=== PATIENT | female | born 1985 | race Hispanic/Latino ===

== ENCOUNTER 2018-06-09 16:17 | Emergency (ER) | payer SELFPAY ==
[2018-06-09] MEDS ORDERED: NA CHLORIDE 0.9% 1,000 ML ONE (17:09)
[2018-06-09] MEDS ORDERED: ONDANSETRON 4 MG/2 ML VIAL ONE (17:09)
[2018-06-09] MEDS ORDERED: MORPHINE 4 MG/ML SYR ONE (17:09)
[2018-06-09] MEDS ORDERED: METRONIDAZOLE 500mg IVPB 500 MG/100 ML BAG IV ONE (17:10)
[2018-06-09] MEDS ORDERED: CEFTRIAXONE/SWI 1gm 1 GM/10 ML SYR ONE (17:10)
[2018-06-09 17:40] LABS: Urine Blood NEGATIVE (NEG); Urine Glucose NEGATIVE (NEG); Urine Protein NEGATIVE (NEG); Urine Specific Gravity 1.015 (1.005-1.030); Urine pH 5.5 (5.0-7.0)
[2018-06-09 17:46] LABS: Absolute Lymphocytes (CBC) 1.7 K/uL (0.7-4.9); Absolute Monocytes 0.7 K/uL (0.1-1.3); Absolute Neutrophil 5.9 K/uL (1.8-8.0); Basophils % 0.4 % (0-1.3); Eosinophils % 1.6 % (0-4.4); Lymphocytes % 19.6 % (15.3-44.8); MPV 9.9 fL (7.6-11.3); Monocytes % 7.9 % (3.3-12.3); RBC Red Blood Cell Count 4.74 M/uL (3.86-4.86)
[2018-06-09 18:01] LABS: ALT/SGPT 19 U/L (12-78); AST/SGOT 19 U/L (15-37); Albumin 3.7 g/dL (3.4-5.0); Alkaline Phosphatase 75 U/L (45-117); BUN Blood Urea Nitrogen 11 mg/dL (7-18); Bicarbonate 25 mmol/L (21-32); Bilirubin Direct < 0.1 mg/dL (0-0.2); Bilirubin Total 0.3 mg/dL (0.2-1.0); Glucose Level 91 mg/dL (74-106); Lipase 102 U/L (73-393); Potassium 3.5 mmol/L (3.5-5.1); Protein, Total 8.2 g/dL (6.4-8.2); Sodium Level 141 mmol/L (136-145)
--- NOTE | 2018-06-09 18:07 | ER ---
Nurse's Notes [facility] Name: Muriel Shultz Age: 32 yrs Sex: Female : 1985 Arrival Date: 06/09/2018 Time: 16:20 Bed 14 Private MD: Diagnosis: Cystitis, unspecified without hematuria Presentation: 06/09 16:32 Presenting complaint: Patient states: lower abdominal pain that began today. Pt states aa5 "I had diarrhea yesterday but it went away", denies vomiting. 16:32 Transition of care: patient was not received from another setting of care. Onset of aa5 symptoms was June 09, 2018. Risk Assessment: Do you want to hurt yourself or someone else? Patient reports no desire to harm self or others. Initial Sepsis Screen: Does the patient meet any 2 criteria? No. Patient's initial sepsis screen is negative. Does the patient have a suspected source of infection? No. Patient's initial sepsis screen is negative. Care prior to arrival: None. 16:32 Method Of Arrival: Ambulatory aa5 16:32 Acuity: HERNANDEZ 3 aa5 Triage Assessment: 16:35 General: Appears distressed, uncomfortable, obese, Behavior is cooperative, appropriate bp for age, anxious. 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 - Social history:: Patient/guardian denies using alcohol, street drugs, The patient lives with family, Smoking status: Patient/guardian denies using tobacco. - Ebola Screening: : No symptoms or risks identified at this time. - Family history:: not pertinent. Screenin:26 Abuse screen: Denies threats or abuse. Denies injuries from another. Nutritional bp screening: No deficits noted. Tuberculosis screening: No symptoms or risk factors identified. Fall Risk None identified. Assessment: 16:35 General: Appears distressed, uncomfortable, obese, Behavior is cooperative, appropriate bp for age, anxious. Pain: Complains of pain in abdomen. Neuro: No deficits noted. Cardiovascular: No deficits noted. Respiratory: Airway is patent Respiratory effort is even, unlabored. GI: Bowel sounds present X 4 quads. Abd is soft X 4 quads Abdomen is tender to palpation X 4 quads. : No signs and/or symptoms were reported regarding the genitourinary system. EENT: No deficits noted. Derm: No deficits noted. Musculoskeletal: Circulation, motion, and sensation intact. Range of motion: intact in all extremities. 18:00 Reassessment: ALL CURRENT ORDERS COMPLETED, IVF INFUSING, RESULTS PENDING. bp 18:21 Reassessment: PT D/C HOME AMBULATORY WITH FAMILY, DX WITH ACUTE CYSTITIS. bp Vital Signs: 16:35 BP 111 / 68; Pulse 103; Resp 18 S; Temp 98.6(O); Pulse Ox 98% on R/A; aa5 18:02 BP 96 / 81; Pulse 83; Resp 18; Temp 98.1(O); Pulse Ox 98% on R/A; 5 ED Course: 16:20 Patient arrived in ED. rg4 16:32 Arm band placed on Patient placed in an exam room, on a stretcher. aa5 16:34 Maureen Araiza MD is Attending Physician. ma2 16:35 Patient has correct armband on for positive identification. Placed in gown. Bed in low bp position. Call light in reach. Side rails up X2. Adult w/ patient. 16:41 Triage completed. aa5 16:47 Mao Scherer, RN is Primary Nurse. bp 17:00 Inserted saline lock: 20 gauge in right antecubital area, using aseptic technique. bp Blood collected. 18:21 No provider procedures requiring assistance completed. IV discontinued, intact, bp bleeding controlled, No redness/swelling at site. Pressure dressing applied. Administered Medications: 17:00 Drug: NS 0.9% 1000 ml Route: IV; Rate: 1 bolus; Site: right antecubital; bp 18:23 Follow up: IV Status: Completed infusion; IV Intake: 1000ml bp 17:00 Drug: Zofran 4 mg Route: IVP; Site: right antecubital; bp 18:06 Follow up: Response: Nausea is decreased bp 17:00 Drug: morphine 4 mg Route: IVP; Site: right antecubital; bp 18:06 Follow up: Response: Pain is decreased bp 17:00 Drug: Rocephin 1 grams Route: IV; Rate: calculated rate; Site: right antecubital; bp 18:06 Follow up: IV Status: Completed infusion; IV Intake: 20ml bp 17:00 Drug: Flagyl 500 mg Volume: 100 ml; Route: IVPB; Rate: 200 ml/hr; Infused Over: 30 bp mins; Site: right antecubital; 18:06 Follow up: IV Status: Completed infusion; IV Intake: 100ml bp Intake: 18:06 IV: 20ml; Total: 20ml. bp 18:06 IV: 100ml; Total: 120ml. bp 18:23 IV: 1000ml; Total: 1120ml. bp Outcome: 18:06 Discharge ordered by MD. huggins 18:22 Discharged to home ambulatory. bp 18:22 Condition: stable 18:22 Discharge instructions given to patient, Instructed on discharge instructions, follow up and referral plans. medication usage, Demonstrated understanding of instructions, follow-up care, medications, Prescriptions given X 2. 18:22 Patient left the ED. bp Signatures: Marjan Guzman, ABIH RN fran5 Christal Baldwin Maria Mao Epps RN RN bp Maureen Araiza MD MD ma2
--- NOTE | 2018-06-09 18:07 | EDPHYS ---
Physician Documentation [facility] Name: Muriel Shultz Age: 32 yrs Sex: Female : 1985 Arrival Date: 06/09/2018 Time: 16:20 Bed 14 Private MD: ED Physician Maureen Araiza HPI: 06/09 16:41 This 32 yrs old Female presents to ER via Ambulatory with complaints of ma2 Abdominal Pain. 16:41 The patient presents with abdominal pain right lower quadrant. Onset: The ma2 symptoms/episode began/occurred gradually, 1 hour(s) ago. Associated signs and symptoms: Pertinent negatives: nausea and vomiting, chest pain, dysuria, vaginal discharge, vomiting. Associated signs and symptoms: Pertinent positives: diarrhea. Severity of pain: At its worst the pain was moderate in the emergency department the pain is unchanged. The patient has not experienced similar symptoms in the past. RADIOLOGY ASST: 16:35 LMP 05/31/2018 aa5 Historical: - Allergies: 16:41 No Known Allergies; aa5 - PMHx: 16:41 Hypothyroidism; aa5 - PSHx: 16:41 Tubal ligation; aa5 - Immunization history:: Adult Immunizations up to date. - Social history:: Patient/guardian denies using alcohol, street drugs, The patient lives with family, Smoking status: Patient/guardian denies using tobacco. - Ebola Screening: : No symptoms or risks identified at this time. - Family history:: not pertinent. ROS: 16:41 Constitutional: Negative for fever, chills, and weight loss. ma2 16:41 Abdomen/GI: Positive for abdominal pain, diarrhea, Negative for bowel incontinence. 16:41 All other systems are negative. Exam: 16:41 Constitutional: This is a well developed, well nourished patient who is awake, alert, ma2 and in no acute distress. Chest/axilla: Normal chest wall appearance and motion. Nontender with no deformity. No lesions are appreciated. Cardiovascular: Regular rate and rhythm with a normal S1 and S2. No gallops, murmurs, or rubs. Normal PMI, no JVD. No pulse deficits. Respiratory: Lungs have equal breath sounds bilaterally, clear to auscultation and percussion. No rales, rhonchi or wheezes noted. No increased work of breathing, no retractions or nasal flaring. Abdomen/GI: Soft, non-tender, with normal bowel sounds. No distension or tympany. No guarding or rebound. No evidence of tenderness throughout. MS/ Extremity: Pulses equal, no cyanosis. Neurovascular intact. Full, normal range of motion. Neuro: Awake and alert, GCS 15, oriented to person, place, time, and situation. Cranial nerves II-XII grossly intact. Motor strength 5/5 in all extremities. Sensory grossly intact. Cerebellar exam normal. Normal gait. Vital Signs: 16:35 BP 111 / 68; Pulse 103; Resp 18 S; Temp 98.6(O); Pulse Ox 98% on R/A; aa5 18:02 BP 96 / 81; Pulse 83; Resp 18; Temp 98.1(O); Pulse Ox 98% on R/A; mh5 MDM: 16:34 Patient medically screened. [facility] 16:41 Differential diagnosis: appendicitis, gastritis, gastroesophageal reflux disease, ma2 urinary tract infection. 18:06 Data reviewed: vital signs, nurses notes. Counseling: I had a detailed discussion with [facility] the patient and/or guardian regarding: the historical points, exam findings, and any diagnostic results supporting the discharge/admit diagnosis, the presence of at least one elevated blood pressure reading (>120/80) during this emergency department visit, the need for outpatient follow up. Response to treatment: the patient's symptoms have markedly improved after treatment. 06/09 16:40 Order name: Basic Metabolic Panel; Complete Time: 18:05 [facility] 06/09 16:40 Order name: CBC with Diff; Complete Time: 17:55 [facility] 06/09 16:40 Order name: Creatinine for Radiology; Complete Time: 18:05 [facility] 06/09 16:40 Order name: Hepatic Function; Complete Time: 18:05 [facility] 06/09 16:40 Order name: Lipase; Complete Time: 18:05 [facility] 06/09 17:13 Order name: Urine Dipstick--Ancillary (enter results); Complete Time: 17:55 06/09 16:40 Order name: IV Saline Lock; Complete Time: 17:23 [facility] 06/09 16:40 Order name: Labs collected and sent; Complete Time: 17:23 [facility] 06/09 17:13 Order name: Urine --Ancillary (enter results); Complete Time: 17:55 bd 06/09 16:40 Order name: NPO; Complete Time: 17:04 ma2 06/09 16:40 Order name: Urine Dipstick-Ancillary (obtain specimen); Complete Time: 17:04 ma2 Administered Medications: 17:00 Drug: NS 0.9% 1000 ml Route: IV; Rate: 1 bolus; Site: right antecubital; bp 18:23 Follow up: IV Status: Completed infusion; IV Intake: 1000ml bp 17:00 Drug: Zofran 4 mg Route: IVP; Site: right antecubital; bp 18:06 Follow up: Response: Nausea is decreased bp 17:00 Drug: morphine 4 mg Route: IVP; Site: right antecubital; bp 18:06 Follow up: Response: Pain is decreased bp 17:00 Drug: Rocephin 1 grams Route: IV; Rate: calculated rate; Site: right antecubital; bp 18:06 Follow up: IV Status: Completed infusion; IV Intake: 20ml bp 17:00 Drug: Flagyl 500 mg Volume: 100 ml; Route: IVPB; Rate: 200 ml/hr; Infused Over: 30 bp mins; Site: right antecubital; 18:06 Follow up: IV Status: Completed infusion; IV Intake: 100ml bp Disposition: 06/09/18 18:06 Discharged to Home. Impression: Cystitis, unspecified without hematuria. - Condition is Stable. - Discharge Instructions: Urinary Tract Infection, Adult. - Prescriptions for Tylenol- Codeine #3 300-30 mg Oral Tablet - take 2 tablet by ORAL route every 6 hours As needed; 30 tablet. Bactrim DS 800- 160 mg Oral Tablet - take 1 tablet by ORAL route every 12 hours for 10 days; 20 tablet. - Medication Reconciliation Form, Thank You Letter, Antibiotic Education, Prescription Opioid Use form. - Follow up: Private Physician; When: Tomorrow; Reason: Continuance of care. Signatures: Dispatcher [employer] Marjan Guillen RN RN aa5 Mao Scherer RN RN bp Maureen Araiza MD MD ma2 Corrections: (The following items were deleted from the chart) 18:22 18:06 06/09/2018 18:06 Discharged to Home. Impression: Cystitis, unspecified without bp hematuria. Condition is Stable. Discharge Instructions: Urinary Tract Infection, Adult. Prescriptions for Tylenol-Codeine #3 300-30 mg Oral Tablet - take 2 tablet by ORAL route every 6 hours As needed; 30 tablet, Bactrim DS 800-160 mg Oral Tablet - take 1 tablet by ORAL route every 12 hours for 10 days; 20 tablet. and Forms are Medication Reconciliation Form, Thank You Letter, Antibiotic Education, Prescription Opioid Use. Follow up: Private Physician; When: Tomorrow; Reason: Continuance of care. ma2
== END 2018-06-09 18:22 | disposition home or self-care (01) ==
LOC: ER 16:17
DX: N30.90 Cystitis, unspecified without hematuria (principal)
CPT/HCPCS: 36415; 80048; 80076; 81003; 81025; 83690; 85025; J0696; J2405; J7030

== ENCOUNTER 2018-09-04 01:41 | Emergency (ER) | payer SELFPAY ==
[2018-09-04 02:17] LABS: Absolute Lymphocytes (CBC) 2.7 K/uL (0.7-4.9); Basophils % 0.7 % (0-1.3); Lymphocytes % 21.3 % (15.3-44.8); MPV 10.2 fL (7.6-11.3); RBC Red Blood Cell Count 4.38 M/uL (3.86-4.86)
[2018-09-04] MEDS ORDERED: NA CHLORIDE 0.9% 1,000 ML ONE (02:29)
[2018-09-04] MEDS ORDERED: ONDANSETRON 4 MG/2 ML VIAL ONE (02:29)
[2018-09-04] MEDS ORDERED: MORPHINE 4 MG/ML SYR ONE (02:29)
[2018-09-04 02:39] LABS: ALT/SGPT 30 U/L (12-78); AST/SGOT 41 U/L (15-37); Albumin 3.5 g/dL (3.4-5.0); Alkaline Phosphatase 77 U/L (45-117); BUN Blood Urea Nitrogen 12 mg/dL (7-18); Bicarbonate 22 mmol/L (21-32); Bilirubin Direct 0.1 mg/dL (0-0.2); Bilirubin Total 0.3 mg/dL (0.2-1.0); Glucose Level 116 mg/dL (74-106); Lipase 160 U/L (73-393); Potassium 3.5 mmol/L (3.5-5.1); Sodium Level 139 mmol/L (136-145); Troponin (Emerg Dept Use Only) < 0.02 ng/mL (0.0-0.045)
[2018-09-04 03:55] LABS: Urine Blood NEGATIVE (NEG); Urine Glucose NEGATIVE (NEG); Urine Protein NEGATIVE (NEG); Urine Specific Gravity 1.015 (1.005-1.030)
[2018-09-04 03:56] LABS: Urine Culture Reflex Order REFLEXED
[2018-09-04 03:57] LABS: Urine Bacteria <20 /HPF (<20); Urine RBC NONE SEEN /HPF (NONE SEEN)
--- NOTE | 2018-09-04 04:16 | ER ---
Nurse's Notes [facility] Name: Muriel Shultz Age: 33 yrs Sex: Female : 1985 Arrival Date: 09/04/2018 Time: 01:44 Bed 8 Private MD: Diagnosis: Cholelithiasis;Gastritis, unspecified Presentation: 09/04 02:13 Presenting complaint: Patient states: right chest wall pain, epigastric pain with ak1 nausea. Transition of care: patient was not received from another setting of care. Onset of symptoms was September 03, 2018 at 21:00. Risk Assessment: Do you want to hurt yourself or someone else? Patient reports no desire to harm self or others. Initial Sepsis Screen: Does the patient meet any 2 criteria? No. Patient's initial sepsis screen is negative. Does the patient have a suspected source of infection? No. Patient's initial sepsis screen is negative. Care prior to arrival: None. 02:13 Method Of Arrival: Wheelchair ak1 02:13 Acuity: HERNANDEZ 3 ak1 Triage Assessment: 01:54 General: Appears in no apparent distress. uncomfortable, Behavior is cooperative, ak1 anxious, crying, restless. Pain: Complains of pain in diaphragm, xyphoid area and right breast. EENT: No signs and/or symptoms were reported regarding the EENT system. Neuro: No deficits noted. Cardiovascular: Reports chest pain. Respiratory: Airway is patent Breath sounds are clear bilaterally. GI: Abdomen is round Reports nausea. : No signs and/or symptoms were reported regarding the genitourinary system. Derm: No signs and/or symptoms reported regarding the dermatologic system. Musculoskeletal: No signs and/or symptoms reported regarding the musculoskeletal system. 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 - Social history:: Smoking status: Patient/guardian denies using tobacco. - Ebola Screening: : No symptoms or risks identified at this time. - Family history:: not pertinent. - Hospitalizations: : No recent hospitalization is reported. Screenin:14 Abuse screen: Denies threats or abuse. Denies injuries from another. Nutritional ak1 screening: No deficits noted. Tuberculosis screening: No symptoms or risk factors identified. Fall Risk None identified. Assessment: 02:00 General: see triage assessment. cc3 02:00 Pain: Complains of pain in chest Pain radiates to back Pain began suddenly. cc3 03:20 Reassessment: Patient appears in no apparent distress at this time. Patient and/or cc3 family updated on plan of care and expected duration. Pain level reassessed. Patient is alert, oriented x 3, equal unlabored respirations, skin warm/dry/pink. Patient came back from CT scan department, awaiting result. Patient denies pain at this time. Patient states feeling better. Patient states symptoms have improved. 04:30 Reassessment: Patient appears in no apparent distress at this time. Patient and/or cc3 family updated on plan of care and expected duration. Pain level reassessed. Patient is alert, oriented x 3, equal unlabored respirations, skin warm/dry/pink. Dr. Harvey discharged the patient home with prescriptions given. IV cannula removed and patient left ER vitally stable and ambulatory with her . No valuables left in the patient's room. Patient denies pain at this time. Patient states feeling better. Patient states symptoms have improved. Vital Signs: 01:53 BP 112 / 63; Pulse 95; Resp 24; Temp 97.9(O); Pulse Ox 99% on R/A; Weight 106.59 kg ak1 (R); Height 5 ft. 7 in. (170.18 cm) (R); Pain 10/10; 02:30 BP 105 / 70; Pulse 78; Resp 17 S; Pulse Ox 96% on R/A; cc3 03:25 BP 115 / 83; Pulse 93; Resp 16 S; Pulse Ox 98% on R/A; Pain 0/10; cc3 04:18 BP 112 / 87; Pulse 81; Resp 15 S; Pulse Ox 97% on R/A; cc3 01:53 Body Mass Index 36.81 (106.59 kg, 170.18 cm) ak1 ED Course: 01:44 Patient arrived in ED. ds1 01:45 Kirt Harvey MD is Attending Physician. rn 01:46 Fanny Melgar RN is Primary Nurse. ak1 01:46 Primary Nurse role handed off by Fanny Melgar RN cc3 01:46 Julienne Landon is Primary Nurse. cc3 01:53 Arm band placed on Patient placed in an exam room, on a stretcher, on pulse oximetry, ak1 Patient notified of wait time. 02:00 Patient has correct armband on for positive identification. Placed in gown. Bed in low cc3 position. Call light in reach. Side rails up X 1. outside sales representative insurance on. Pulse ox on. NIBP on. 02:00 Inserted saline lock: 20 gauge in right antecubital area, using aseptic technique. cc3 Blood collected. 02:00 Patient maintains SpO2 saturation greater than 95% on room air. cc3 02:05 X-ray completed. Portable x-ray completed in exam room. Patient tolerated procedure kw well. 02:07 XRAY Chest (1 view) In Process Unspecified. EDMS 02:08 Julienne Landon is Primary Nurse. cc3 02:14 Triage completed. ak1 02:18 Julienne Landon is Primary Nurse. cc3 02:46 Radiology exam delayed due to test not completed at this time. eh 03:25 CT Abd/Pelvis - IV Contrast Only In Process Unspecified. EDMS 04:15 Yeison Moore MD is Referral Physician. rn 04:30 No provider procedures requiring assistance completed. IV discontinued, intact, cc3 bleeding controlled, No redness/swelling at site. Pressure dressing applied. Administered Medications: 02:13 Drug: morphine 4 mg Route: IVP; Site: right antecubital; cc3 02:45 Follow up: Response: No adverse reaction; Pain is decreased cc3 02:13 Drug: NS 0.9% 1000 ml Route: IV; Rate: 1000 ml; Site: right antecubital; cc3 03:15 Follow up: Response: No adverse reaction; IV Status: Completed infusion; IV Intake: cc3 1000ml 02:17 Drug: Zofran 4 mg Route: IVP; Site: right antecubital; cc3 02:45 Follow up: Response: No adverse reaction; Nausea is decreased cc3 Intake: 03:15 IV: 1000ml; Total: 1000ml. cc3 Outcome: 04:16 Discharge ordered by . rn 04:30 Discharged to home ambulatory, with family. cc3 04:30 Condition: stable 04:30 Discharge instructions given to patient, family, Instructed on discharge instructions, follow up and referral plans. medication usage, Demonstrated understanding of instructions, follow-up care, medications, Prescriptions given X 2. 04:31 Patient left the ED. cc3 Signatures: Dispatcher [employer] EDMiguel Schmidt Demi ds1 Kirt Harvey MD MD rn Whitley, Kimberlee kw Krenek, Amber, RN RN ak1 Julienne Landon cc3 Corrections: (The following items were deleted from the chart) 04:00 03:25 BP 115 / 83; Pulse 93bpm; Resp 16bpm; Spontaneous; Pulse Ox 98% RA; cc3 cc3
--- NOTE | 2018-09-04 04:17 | EDPHYS ---
Physician Documentation [facility] Name: Muriel Shultz Age: 33 yrs Sex: Female : 1985 Arrival Date: 09/04/2018 Time: 01:44 Bed 8 Private MD: ED Physician Kirt Harvey HPI: 09/04 01:54 This 33 yrs old Female presents to ER via Unassigned with complaints of Chest rn Pain, Shortness Of Breath. 01:54 The patient or guardian reports chest pain that is located primarily in the right rn breast. The pain does not radiate. The chest pain is described as sharp, stabbing. Duration: The patient or guardian reports a single episode, that is still ongoing. Severity of pain: At its worst the pain was moderate in the emergency department the pain is unchanged. The patient has not experienced similar symptoms in the past. Reports sudden onset right lower chest pain, feels it under right breast, no fever/cough, + nausea and decreased appetite, began tonight. NO diarrhea. . 01:54 Patient denies chest trauma/cough/fever/recent surgery. Has never had this before.. 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 - Social history:: Smoking status: Patient/guardian denies using tobacco. - Ebola Screening: : No symptoms or risks identified at this time. - Family history:: not pertinent. - Hospitalizations: : No recent hospitalization is reported. ROS: 01:54 Constitutional: Negative for fever, chills, and weight loss, Eyes: Negative for injury, rn pain, redness, and discharge, Neck: Negative for injury, pain, and swelling, Cardiovascular: Negative for palpitations, and edema, Respiratory: Negative for cough, wheezing Abdomen/GI: + abd pain MS/Extremity: Negative for injury and deformity, Skin: Negative for injury, rash, and discoloration, Neuro: Negative for headache, weakness, numbness, tingling, and seizure. Exam: 02:43 Constitutional: Overweight female appears in pain. Head/Face: Normocephalic, rn atraumatic. Eyes: Pupils equal round and reactive to light, extra-ocular motions intact. Lids and lashes normal. Conjunctiva and sclera are non-icteric and not injected. Cornea within normal limits. Periorbital areas with no swelling, redness, or edema. ENT: MMM Cardiovascular: Regular rate and rhythm. No pulse deficits. Respiratory: + mild tachypnea, clear bilateral breath sounds Abdomen/GI: soft, + tender RUQ/epigastric region, no rebound Skin: Warm, dry with normal turgor. Normal color with no rashes, no lesions, and no evidence of cellulitis. MS/ Extremity: Pulses equal, no cyanosis. Neurovascular intact. Full, normal range of motion. Equal circumference. Neuro: Awake and alert, GCS 15, oriented to person, place, time, and situation. Cranial nerves II-XII grossly intact. Motor strength 5/5 in all extremities. Sensory grossly intact. Vital Signs: 01:53 BP 112 / 63; Pulse 95; Resp 24; Temp 97.9(O); Pulse Ox 99% on R/A; Weight 106.59 kg ak1 (R); Height 5 ft. 7 in. (170.18 cm) (R); Pain 10/10; 02:30 BP 105 / 70; Pulse 78; Resp 17 S; Pulse Ox 96% on R/A; cc3 03:25 BP 115 / 83; Pulse 93; Resp 16 S; Pulse Ox 98% on R/A; Pain 0/10; cc3 04:18 BP 112 / 87; Pulse 81; Resp 15 S; Pulse Ox 97% on R/A; cc3 01:53 Body Mass Index 36.81 (106.59 kg, 170.18 cm) ak1 MDM: 01:45 Patient medically screened. rn 03:32 ED course: Pt pain free after morphine.. rn 04:12 Differential diagnosis: acute pericarditis, anxiety, chest wall pain, cholecystitis, rn Cholelithiasis costochondritis, esophagitis, gastritis, gastroesophageal reflux disease (GERD), pancreatitis, pneumothorax. Data reviewed: vital signs, nurses notes, lab test result(s), EKG, radiologic studies, CT scan, plain films, and as a result, I will discharge patient. Counseling: I had a detailed discussion with the patient and/or guardian regarding: the historical points, exam findings, and any diagnostic results supporting the discharge/admit diagnosis, lab results, radiology results, the need for outpatient follow up, to return to the emergency department if symptoms worsen or persist or if there are any questions or concerns that arise at home. Response to treatment: the patient's symptoms have markedly improved after treatment, and as a result, I will discharge patient. Special discussion: Based on the patient's history, exam, and Dx evaluation, there is no indication for emergent intervention or inpatient Tx. It is understood by the patient/guardian that if the Sx's persist or worsen they need to return immediately for re-evaluation. Based on the patient's Hx, exam, and Dx evaluation, there is no indication for emergent surgery or inpatient Tx. It is understood by the patient/guardian that if the Sx's persist or worsen they need to return immediately for re-evaluation. I discussed with the patient/guardian in detail that at this point there is no indication for admission to the hospital. It is understood, however, that if the symptoms persist or worsen the patient needs to return immediately for re-evaluation. ED course: Pt with pain resolved, most likely cholelithiasis given pain after dinner, RUQ, and states has been having pain after meals for last few days. Recommend outpt surgical f/u and daily antacid. Return precautions given and understood. Pain free. . 09/04 01:53 Order name: Basic Metabolic Panel; Complete Time: 03:30 09/04 01:53 Order name: CBC with Diff; Complete Time: 03:30 09/04 01:53 Order name: Hepatic Function; Complete Time: 03:30 09/04 01:53 Order name: Lipase; Complete Time: 03:30 09/04 01:53 Order name: Troponin (emerg Dept Use Only); Complete Time: 03:30 09/04 01:53 Order name: Urine Microscopic Only; Complete Time: 04:04 09/04 01:53 Order name: XRAY Chest (1 view) 09/04 01:53 Order name: CT Abd/Pelvis - IV Contrast Only 09/04 03:35 Order name: Urine Dipstick--Ancillary (enter results); Complete Time: 04:04 cm6 09/04 03:35 Order name: Urine --Ancillary (enter results); Complete Time: 04:04 cm6 09/04 03:59 Order name: Urine Culture EDMS 09/04 01:53 Order name: IV Saline Lock; Complete Time: 02:09 rn 09/04 01:53 Order name: Labs collected and sent; Complete Time: 02:09 rn 09/04 01:53 Order name: EKG; Complete Time: 01:54 rn 09/04 01:53 Order name: EKG - Nurse/Tech; Complete Time: 02:09 rn 09/04 01:53 Order name: NPO; Complete Time: 02:08 rn 09/04 01:53 Order name: Urine Test (obtain specimen); Complete Time: 03:38 rn 09/04 01:53 Order name: Urine Dipstick-Ancillary (obtain specimen); Complete Time: 03:38 rn Administered Medications: 02:13 Drug: morphine 4 mg Route: IVP; Site: right antecubital; cc3 02:45 Follow up: Response: No adverse reaction; Pain is decreased cc3 02:13 Drug: NS 0.9% 1000 ml Route: IV; Rate: 1000 ml; Site: right antecubital; cc3 03:15 Follow up: Response: No adverse reaction; IV Status: Completed infusion; IV Intake: cc3 1000ml 02:17 Drug: Zofran 4 mg Route: IVP; Site: right antecubital; cc3 02:45 Follow up: Response: No adverse reaction; Nausea is decreased cc3 Disposition: 09/04/18 04:16 Discharged to Home. Impression: Cholelithiasis, Gastritis, unspecified. - Condition is Stable. - Discharge Instructions: Gastritis, Adult, Cholelithiasis. - Prescriptions for Zofran ODT 4 mg Oral tablet,disintegrating - place 1 tablet by TRANSLINGUAL route every 8 hours As needed; 20 tablet. Tylenol- Codeine #3 300-30 mg Oral Tablet - take 1 tablet by ORAL route every 6 hours As needed; 20 tablet. - Medication Reconciliation Form, Thank You Letter, Antibiotic Education, Prescription Opioid Use, Family Work Release form. - Follow up: Yeison Moore MD; When: As needed; Reason: Recheck today's complaints, Re-evaluation by your physician. - Problem is new. - Symptoms have improved. Signatures: Dispatcher [employer] EDMS Harvey, Kirt, MD MD rn Fanny Melgar RN RN ak1 Julienne Landon cc3 Corrections: (The following items were deleted from the chart) 04:31 04:16 09/04/2018 04:16 Discharged to Home. Impression: Cholelithiasis; Gastritis, cc3 unspecified. Condition is Stable. Forms are Medication Reconciliation Form, Thank You Letter, Antibiotic Education, Prescription Opioid Use. Follow up: Yeison Moore; When: As needed; Reason: Recheck today's complaints, Re-evaluation by your physician. Problem is new. Symptoms have improved. rn
--- NOTE | 2018-09-04 09:45 | RAD REPORT ---
EXAM DESCRIPTION: Bartolo Single View09/04/2018 2:08 am CLINICAL HISTORY: Chest pain COMPARISON: none FINDINGS: The lungs appear clear of acute infiltrate. The heart is normal size IMPRESSION: No acute abnormalities displayed
--- NOTE | 2018-09-04 12:19 | RAD REPORT ---
EXAM DESCRIPTION: CT - Abdomen Pelvis W Contrast - 09/04/2018 4:59 am CLINICAL HISTORY: Upper abd/chest pain COMPARISON: None. TECHNIQUE: CT ABDOMEN PELVIS WITH IV CONTRAST on 09/04/2018 1:53 AM CDT This exam was performed according to our departmental dose-optimization program, which includes autom ated exposure control, adjustment of the mA and/or kV according to patient size and/or use of iterati ve reconstruction technique. FINDINGS: Lower lungs are clear. Abdomen: Liver is fatty in attenuation. There is no biliary dilatation. Gallbladder contains a small gallstone. The pancreas and spleen are normal in appearance. Adrenal glands and left kidney are jolene l. There is minimal fullness of the right renal collecting system. Abdominal aorta is normal in course and caliber without aneurysm. There is no free air. There is no r etroperitoneal adenopathy. Pelvis: There is no bowel obstruction. Urinary bladder is unremarkable. There is no free fluid. Uteru s is normal in size. Appendix is normal. Skeleton: There are no acute osseous findings. No suspicious bony lesions. IMPRESSION: Minimal fullness of the right renal collecting system without definite obstructing lesio n. Electronically signed by: Emil Joseph MD 09/04/2018 3:38 AM CDT Due to temporary technical issues with the PACS/Fluency reporting system, reports are being signed by the in house radiologist as a courtesy to ensure prompt reporting. The interpreting radiologist is f ully responsible for the content of the report.
--- NOTE | 2018-09-05 06:31 | EKG ---
Test Date: 2018-09-04 Test Time: 01:55:43 Child And Adolescent Psychologist: MELY MEASUREMENT RESULTS: Intervals: Rate: 97 [place]: 146 QRSD: 82 QT: 376 QTc: 477 [place]: P: 75 [place]: 146 QRS: 46 T: 43 INTERPRETIVE STATEMENTS: Normal sinus rhythm Normal ECG No previous ECG available for comparison Electronically Signed On 09-05-18 06:29:54 CDT by Michael Khan
== END 2018-09-04 04:31 | disposition home or self-care (01) ==
LOC: ER 01:41
DX: K80.20 Calculus of gallbladder without cholecystitis without obstruction (principal); K29.70 Gastritis, unspecified, without bleeding
CPT/HCPCS: 36415; 71045; 74177; 80048; 80076; 81003; 81015; 81025; 83690; 84484; 85025; 87086; 87088; 93005; 96361; 96374; 96375; 99285; J2405; J7030; Q9967

== ENCOUNTER 2020-06-30 19:37 | Emergency (ER) | payer SELFPAY ==
--- OUTSIDE RECORDS SUMMARY | 2020-06-30 20:01 | XMS REPORT | Continuity of Care Document ---
:1985 Author Organization [facility] t Address [address] [place] [address] Care Team Providers Name Role Phone Lab, Fam Pob I Attending Clinician Unavailable Oscar MCKEON L Attending Clinician Problems This patient has no known problems. Allergies, Adverse Reactions, Alerts This patient has no known allergies or adverse reactions. Medications This patient has no known medications. Procedures This patient has no known procedures. Encounters Start End Encounter Admission Attending Care Care Encounter Source Date/Time Date/Time Type Type Clinicians Facility Department ID 2020-06-22 2020-06-22 Laboratory Lab, [facility] [id number] 12:54:53 13:14:53 Only Fam Ronaldb I [facility] [id number] [place] [id number] Professio [phone] [address] 2020-06-21 2020-06-21 Case Oscar [facility] [id number] 00:00:00 00:00:00 Management Jessica Bauman [place] [id number] [place] [id number] Professio [phone] [address] Building 2020-06-19 2020-06-19 Office Johann [facility] [id number] 09:53:45 10:37:11 Visit Jessica Bauman [place] [id number] [place] [id number] Professio [phone] [facility] [address] [facility] Results This patient has no known results.
[2020-06-30 21:04] LABS: Absolute Lymphocytes (CBC) 3.9 K/uL (0.7-4.9); Basophils % 1.3 % (0-1.3); Hematocrit 33.5 % (36.0-45.0); Lymphocytes % 30.4 % (15.3-44.8); MPV 9.4 fL (7.6-11.3)
--- NOTE | 2020-06-30 21:10 | RAD REPORT ---
EXAM DESCRIPTION: RAD - Chest Single View - 06/30/2020 9:02 pm CLINICAL HISTORY: Cough;SOB Chest pain. COMPARISON: Chest Single View dated 09/04/2018 FINDINGS: Portable technique limits examination quality. The lungs are grossly clear. The heart is normal in size. No displaced fractures. IMPRESSION: No acute intrathoracic process suspected.
[2020-06-30 21:12] LABS: Protime INR 1.1
[2020-06-30] MEDS ORDERED: HYDROCODONE/CHLORPHEN 5 ML/OSYR ONE (21:12)
[2020-06-30] MEDS ORDERED: METHYLPREDNISOLONE 125 MG INJ ONE (21:12)
[2020-06-30 21:23] LABS: ALT/SGPT 21 U/L (12-78); AST/SGOT 10 U/L (15-37); Albumin 3.4 g/dL (3.4-5.0); Alkaline Phosphatase 64 U/L (45-117); BUN Blood Urea Nitrogen 12 mg/dL (7-18); Bicarbonate 26 mmol/L (21-32); Bilirubin Direct < 0.1 mg/dL (0-0.2); Bilirubin Total 0.3 mg/dL (0.2-1.0); Glucose Level 102 mg/dL (74-106); Magnesium 2.1 mg/dL (1.8-2.4); NT PRO-BNP 18 pg/mL (<125); Potassium 3.3 mmol/L (3.5-5.1); Protein, Total 7.2 g/dL (6.4-8.2); Sodium Level 142 mmol/L (136-145); Troponin (Emerg Dept Use Only) < 0.02 ng/mL (0.0-0.045)
[2020-06-30 22:04] LABS: Urine Blood Negative (Negative); Urine Glucose Negative (Negative); Urine Protein Negative (Negative); Urine Specific Gravity 1.015 (1.005-1.030); Urine pH 5.5 (5.0-7.0)
[2020-06-30] MEDS ORDERED: NA CHLORIDE 0.9% 1,000 ML ONE (22:14)
[2020-06-30] MEDS ORDERED: POTASSIUM 25 MEQ EFFERV TAB ONE (22:14)
[2020-06-30 22:38] LABS: Urine Specific Gravity/Preg 1.015 (1.005-1.030)
[2020-06-30 22:54] LABS: SARS-COV-2 RT PCR NEGATIVE (NEGATIVE)
--- NOTE | 2020-06-30 23:07 | ER ---
Nurse's Notes [facility] Name: Muriel Shultz Age: 34 yrs Sex: Female : 1985 Arrival Date: 06/30/2020 Time: 20:00 Bed 16 Private MD: Diagnosis: Acute bronchitis, unspecified Presentation: 06/30 20:07 Chief complaint: Patient states: Has been coughing for the past week in a half, c/o of vg1 sore throat and h/a; saw PCP on Thursday and was prescribed antibiotics and steroids. Pt states is not feeling any better, feels worse. Pt states chest hurts with cough and deep inhalation. Coronavirus screen: Client denies travel out of the [place] in the last 14 days. Client presents with at least one sign or symptom that may indicate coronavirus-19. Standard/surgical mask placed on the client. Ebola Screen: Patient negative for fever greater than or equal to 101.5 degrees Fahrenheit, and additional compatible Ebola Virus Disease symptoms. Initial Sepsis Screen: Does the patient meet any 2 criteria? No. Patient's initial sepsis screen is negative. Does the patient have a suspected source of infection? No. Patient's initial sepsis screen is negative. Risk Assessment: Do you want to hurt yourself or someone else? Patient reports no desire to harm self or others. Onset of symptoms Onset of symptoms was June 20, 2020. 20:07 Method Of Arrival: Ambulatory vg1 20:07 Acuity: HERNANDEZ 3 vg1 Triage Assessment: 20:12 General: Appears in no apparent distress. uncomfortable, Behavior is calm, cooperative. vg1 Pain:. 20:30 Respiratory: the patient has mild shortness of breath. DISEASE EDUCATION SPECIALIST: 20:30 [facility] 05/2020 Historical: - Allergies: 20:12 Valtrex; vg1 - Home Meds: 20:12 levothyroxine oral [Active]; pantoprazole oral oral [Active]; vg1 - PMHx: 20:12 Hypothyroidism; Depression; vg1 - Immunization history:: Adult Immunizations up to date, Client reports receiving the 2nd dose of the Covid vaccine. - Social history:: Smoking status: Patient denies any tobacco usage or history of. Screenin:30 Abuse screen: Denies threats or abuse. Denies injuries from another. Nutritional screening: No deficits noted. Tuberculosis screening: No symptoms or risk factors identified. Fall Risk None identified. Assessment: 20:30 Pain: Complains of pain in chest Pain does not radiate. Quality of pain is described as pressure, Pain began years ago. Is intermittent. Neuro: Level of Consciousness is awake, alert, obeys commands, Oriented to person, place, time, situation, Appropriate for age. Cardiovascular: Heart tones S1 S2 Rhythm is regular. Respiratory: Reports cough that is Airway is patent Respiratory effort is even, unlabored, Respiratory pattern is regular, symmetrical, Breath sounds are clear bilaterally. GI: Abdomen is non-distended. : No signs and/or symptoms were reported regarding the genitourinary system. EENT: No signs and/or symptoms were reported regarding the EENT system. Derm: Skin is intact, is healthy with good turgor, Skin is pink, warm \T\ dry. normal. Musculoskeletal: Circulation, motion, and sensation intact. 21:45 Reassessment: Patient appears in no apparent distress at this time. No changes from previously documented assessment. Patient and/or family updated on plan of care and expected duration. Pain level reassessed. Patient is alert, oriented x 3, equal unlabored respirations, skin warm/dry/pink. 22:54 Reassessment: Patient appears in no apparent distress at this time. Patient and/or family updated on plan of care and expected duration. Pain level reassessed. Patient is alert, oriented x 3, equal unlabored respirations, skin warm/dry/pink. Vital Signs: 20:07 BP 116 / 83; Pulse 117; Resp 20; Temp 98.4(O); Pulse Ox 99% on R/A; Weight 99.79 kg; vg1 Height 5 ft. 7 in. (170.18 cm); Pain 8/10; 21:30 BP 108 / 85; Pulse 101; Resp 18; Pulse Ox 99% on R/A; wh 22:55 BP 99 / 64; Pulse 90; Resp 18; Pulse Ox 98% on R/A; wh 20:07 Body Mass Index 34.46 (99.79 kg, 170.18 cm) vg1 ED Course: 20:00 Patient arrived in ED. am4 20:10 Triage completed. vg1 20:12 Arm band placed on. vg1 20:20 Adolfo Cook PA is PHCP. cp 20:20 Mukesh Gurrola MD is Attending Physician. cp 20:30 Patient has correct armband on for positive identification. Bed in low position. Call light in reach. Side rails up X 1. election supervisor on. Pulse ox on. NIBP on. 20:35 Inserted saline lock: 20 gauge in left antecubital area, using aseptic technique. Blood wh collected. 20:40 Estefanía Hebert RN is Primary Nurse. 21:02 XRAY Chest (1 view) In Process Unspecified. EDMS 23:31 No provider procedures requiring assistance completed. IV discontinued, intact, bleeding controlled, No redness/swelling at site. Administered Medications: 20:56 Drug: Tussionex Pennkinetic ER (chlorpheniramine-hydrocodone) 5 ml Route: PO; 22:03 Follow up: Response: No adverse reaction; Pain is decreased; RASS: Alert and Calm (0) 20:57 Drug: SOLU-Medrol (methylPrednisoLONE) 125 mg Route: IVP; Site: left antecubital; 22:03 Follow up: Response: No adverse reaction 21:55 Drug: Potassium Effervescent Tablet 50 mEq Route: PO; 22:57 Follow up: Response: No adverse reaction 21:56 Drug: NS 0.9% 1000 ml Route: IV; Rate: 1 bolus; Site: left antecubital; 22:57 Follow up: Response: No adverse reaction; IV Status: Completed infusion Outcome: 23:07 Discharge ordered by MD. 23:31 Discharged to home ambulatory, with family. 23:31 Condition: stable 23:31 Discharge instructions given to patient, family, Instructed on discharge instructions, follow up and referral plans. medication usage, POC Demonstrated understanding of instructions, follow-up care, medications, POC Prescriptions given X 4. 23:32 Patient left the ED. Signatures: Dispatcher [employer] EDAL Adolfo Cook PA PA cp Habalo, Winsy, RN RN Maliha Baldwin RN RN vg1 Malu Moore am4 Corrections: (The following items were deleted from the chart) 22:57 22:55 Pulse 90bpm; Resp 18bpm; Pulse Ox 98% RA; [facility]
--- NOTE | 2020-06-30 23:07 | EDPHYS ---
Physician Documentation [facility] Name: Muriel Shultz Age: 34 yrs Sex: Female : 1985 Arrival Date: 06/30/2020 Time: 20:00 Bed 16 Private MD: ED Physician Mukesh Gurrola HPI: 06/30 20:45 This 34 yrs old Female presents to ER via Ambulatory with complaints of cp Breathing Difficulty, Chest Pain, Cough. 20:45 The patient has shortness of breath at rest. cp 20:45 Onset: The symptoms/episode began/occurred gradually. Duration: The symptoms are cp continuous, and are steadily getting worse. Associated signs and symptoms: Pertinent positives: chest pain, productive cough, Pertinent negatives: diaphoresis, dizziness, fever, vomiting. Severity of symptoms: in the emergency department the symptoms are unchanged despite home interventions. The patient has been recently seen by a physician: the patient's primary care provider, with similar presenting complaints, was given a prescription for antibiotics, oral steroids, but the patient's symptoms have worsened. 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 - Social history:: Smoking status: Patient denies any tobacco usage or history of. ROS: 20:50 Constitutional: Negative for body aches, chills, fever, poor PO intake. cp 20:50 Eyes: Negative for injury, pain, redness, and discharge. cp 20:50 ENT: Positive for sore throat, Negative for ear pain, difficulty swallowing, difficulty handling secretions. 20:50 Cardiovascular: Positive for chest pain, with cough, Negative for edema, palpitations. 20:50 Respiratory: Positive for cough, with clear sputum, shortness of breath, Negative for wheezing. 20:50 Abdomen/GI: Negative for abdominal pain, nausea, vomiting, and diarrhea. 20:50 Neuro: Negative for altered mental status, headache, syncope, weakness. 20:50 All other systems are negative. Exam: 20:24 ECG was reviewed by the Attending Physician. cp 20:55 Constitutional: The patient appears in no acute distress, alert, awake, cp non-diaphoretic, non-toxic, well developed, well nourished, obese. 20:55 Head/Face: Normocephalic, atraumatic. cp 20:55 Eyes: Periorbital structures: appear normal, Conjunctiva: normal, no exudate, no cp injection, Sclera: no appreciated abnormality, Lids and lashes: appear normal, bilaterally. 20:55 ENT: External ear(s): are unremarkable, Nose: is normal, Mouth: Lips: moist, Oral cp mucosa: moist, Posterior pharynx: Airway: no evidence of obstruction, patent. 20:55 Neck: ROM/movement: is normal, is supple, no meningismus, no nuchal rigidity. 20:55 Chest/axilla: Inspection: normal. 20:55 Cardiovascular: Rate: tachycardic, Rhythm: regular, Edema: is not appreciated, JVD: is not appreciated. 20:55 Respiratory: the patient does not display signs of respiratory distress, Respirations: labored breathing, that is mild, intercostal retractions, are absent, splinting, is not noted, tachypnea, is not appreciated, Breath sounds: bronchial sounds, that are mild, are heard diffusely, decreased breath sounds, are not appreciated, stridor, is not appreciated, wheezing: is not appreciated. 20:55 Abdomen/GI: Exam negative for discomfort, distension, guarding, Inspection: abdomen appears normal. 20:55 Neuro: Orientation: to person, place \T\ time. Mentation: is normal. Vital Signs: 20:07 BP 116 / 83; Pulse 117; Resp 20; Temp 98.4(O); Pulse Ox 99% on R/A; Weight 99.79 kg; vg1 Height 5 ft. 7 in. (170.18 cm); Pain 8/10; 21:30 BP 108 / 85; Pulse 101; Resp 18; Pulse Ox 99% on R/A; wh 22:55 BP 99 / 64; Pulse 90; Resp 18; Pulse Ox 98% on R/A; wh 20:07 Body Mass Index 34.46 (99.79 kg, 170.18 cm) vg1 MDM: 20:21 Patient medically screened. cp 21:00 Differential diagnosis: Bronchitis pneumonia, Pneumothorax pulmonary edema, Pulmonary cp Embolism. 23:05 Data reviewed: vital signs, nurses notes, lab test result(s), EKG, radiologic studies, cp plain films. 23:05 Test interpretation: by ED physician or midlevel provider: ECG, plain radiologic cp studies. Counseling: I had a detailed discussion with the patient and/or guardian regarding: the historical points, exam findings, and any diagnostic results supporting the discharge/admit diagnosis, lab results, radiology results, the need for outpatient follow up, a family practitioner, to return to the emergency department if symptoms worsen or persist or if there are any questions or concerns that arise at home. Response to treatment: the patient's symptoms have markedly improved after treatment, VSS. Cough markedly improved with meds and patient observed resting in exam room. Patient appears non-toxic and no signs of respiratory failure. Will discharge to home for continued monitoring. 06/30 20:37 Order name: Basic Metabolic Panel cp 06/30 20:37 Order name: CBC with Diff cp 06/30 20:37 Order name: LFT's cp 06/30 20:37 Order name: Magnesium cp 06/30 20:37 Order name: NT PRO-BNP cp 06/30 20:37 Order name: PT-INR cp 06/30 20:37 Order name: Troponin (emerg Dept Use Only) cp 06/30 20:37 Order name: D-Dimer; Complete Time: 21:43 cp 06/30 21:46 Interpretation: Within normal limits: D-DIMER 433. cp 06/30 20:38 Order name: Basic Metabolic Panel; Complete Time: 21:43 EDMS 06/30 21:45 Interpretation: Normal except: K 3.3; CL 109; GFR 84; CA 8.1. cp 06/30 20:38 Order name: CBC with Automated Diff; Complete Time: 21:43 EDMS 06/30 21:44 Interpretation: Normal except: WBC 12.90; HGB 10.9; HCT 33.5; MCV 74.3; MCH 24.3; RDW cp 18.8. 06/30 20:38 Order name: Liver (Hepatic) Function; Complete Time: 21:43 EDMS 06/30 21:45 Interpretation: Normal except: AST 10; GLOB 3.8; A/G 0.9. cp 06/30 20:38 Order name: Magnesium; Complete Time: 21:43 EDMS 06/30 20:37 Order name: XRAY Chest (1 view); Complete Time: 21:43 cp 06/30 20:37 Order name: EKG; Complete Time: 20:38 cp 06/30 20:37 Order name: Cardiac monitoring; Complete Time: 20:57 cp 06/30 20:37 Order name: EKG - Nurse/Tech; Complete Time: 20:57 cp 06/30 20:37 Order name: IV Saline Lock; Complete Time: 20:57 cp 06/30 20:38 Order name: NT PRO-BNP; Complete Time: 21:43 EDMS 06/30 20:38 Order name: Protime (+INR); Complete Time: 21:43 EDMS 06/30 20:38 Order name: Troponin (Emerg Dept Use Only); Complete Time: 21:43 EDMS 06/30 22:03 Order name: Urine Dipstick-Ancillary; Complete Time: 22:32 EDMS 06/30 22:32 Interpretation: Reviewed. cp 06/30 22:04 Order name: Urine --Ancillary (enter results); Complete Time: 23:01 tt3 06/30 22:54 Order name: COVID-19/FLU A+B; Complete Time: 23:01 EDMS 06/30 20:37 Order name: Labs collected and sent; Complete Time: 20:57 cp 06/30 20:37 Order name: O2 Per Protocol; Complete Time: 20:57 cp 06/30 20:37 Order name: O2 Sat Monitoring; Complete Time: 20:57 cp 06/30 20:37 Order name: Urine Dipstick-Ancillary (obtain specimen); Complete Time: 22:02 cp 06/30 20:37 Order name: Urine Test (obtain specimen); Complete Time: 22:02 cp EC:24 Rate is 98 beats/min. Rhythm is regular. SC interval is normal. QRS interval is normal. cp QT interval is normal. T waves are Inverted in lead aVR. Interpreted by me. Reviewed by me. Administered Medications: 20:56 Drug: Tussionex Pennkinetic ER (chlorpheniramine-hydrocodone) 5 ml Route: PO; 22:03 Follow up: Response: No adverse reaction; Pain is decreased; RASS: Alert and Calm (0) 20:57 Drug: SOLU-Medrol (methylPrednisoLONE) 125 mg Route: IVP; Site: left antecubital; 22:03 Follow up: Response: No adverse reaction 21:55 Drug: Potassium Effervescent Tablet 50 mEq Route: PO; 22:57 Follow up: Response: No adverse reaction 21:56 Drug: NS 0.9% 1000 ml Route: IV; Rate: 1 bolus; Site: left antecubital; 22:57 Follow up: Response: No adverse reaction; IV Status: Completed infusion Disposition: 07/01 07:22 Co-signature as Attending Physician, Mukesh Gurrola MD. [email or web address] Disposition: 06/30/20 23:07 Discharged to Home. Impression: Acute bronchitis, unspecified. - Condition is Stable. - Discharge Instructions: Acute Bronchitis, Adult. - Prescriptions for Augmentin 875- 125 mg Oral Tablet - take 1 tablet by ORAL route every 12 hours for 10 days; 20 tablet. Albuterol Sulfate 2.5 mg /3 mL (0.083 %) Inhalation Solution for Nebulization - inhale 1 unit by NEBULIZATION route every 8 hours As needed; 1 box. Albuterol Sulfate 90 mcg/actuation - inhale 1-2 puff by INHALATION route every 4-6 hours; 1 Inhaler. Guaifenesin AC 10- 100 mg/5 mL Oral Liquid - take 10 milliliter by ORAL route every 4 hours As needed; 240 milliliter. Prednisone 20 mg Oral Tablet - take 2 tablet by ORAL route once daily for 5 days; 10 tablet. - Medication Reconciliation Form, Thank You Letter, Antibiotic Education, Prescription Opioid Use form. - Work release form (06/30/20 23:34). tt3 - Family Work Release (06/30/20 23:37). tt3 - Follow up: Private Physician; When: 2 - 3 days; Reason: Worsening of condition. - Problem is an ongoing problem. - Symptoms have improved. Signatures: Dispatcher [employer] EDMS Adolfo Cook PA PA cp Habalo, Winsy, RN RN Maliha Baldwin RN RN 1 Mukesh Gurrola MD MD [email or web address] Jose Manjarrez tt3 Corrections: (The following items were deleted from the chart) 06/30 21:45 21:44 Normal except: K 3.3; CL 109; GFR 84. cp cp 22:10 20:38 Influenza Screen (A ordered. EDNM EDMS 22:10 20:38 Influenza Screen (A \T\ B)+BA.LAB.BRZ ordered. [facility] EDMS 23:32 23:07 06/30/2020 23:07 Discharged to Home. Impression: Acute bronchitis, unspecified. wh Condition is Stable. Forms are Medication Reconciliation Form, Thank You Letter, Antibiotic Education, Prescription Opioid Use. Follow up: Private Physician; When: 2 - 3 days; Reason: Worsening of condition. Problem is an ongoing problem. Symptoms have improved. cp
[2020-06-30 23:38] VITALS: TEMP 98.4
[2020-06-30 23:41] VITALS: BP 99/64; O2SAT 98
== END 2020-06-30 23:32 | disposition home or self-care (01) ==
LOC: ER 19:37
DX: J20.9 Acute bronchitis, unspecified (principal); Z20.822 Contact with and (suspected) exposure to COVID-19; E03.9 Hypothyroidism, unspecified; F32.9 Major depressive disorder, single episode, unspecified
CPT/HCPCS: 0240U; 36415; 71045; 80048; 80076; 81003; 81025; 83735; 83880; 84484; 85025; 85379; 85610; 93005; 96361; 96374; 99284; J2930; J7030

== ENCOUNTER 2020-12-02 15:00 | Emergency (ER) | payer SELFPAY ==
[2020-12-02 15:42] LABS: Urine Blood Trace-intact (Negative); Urine Glucose Negative (Negative); Urine Protein Negative (Negative)
[2020-12-02 15:45] LABS: Absolute Lymphocytes (CBC) 1.1 K/uL (0.7-4.9); Basophils % 0.3 % (0-1.3); Hematocrit 37.8 % (36.0-45.0); Lymphocytes % 14.4 % (15.3-44.8); MPV 9.6 fL (7.6-11.3); RBC Red Blood Cell Count 4.86 M/uL (3.86-4.86)
[2020-12-02] MEDS ORDERED: NA CHLORIDE 0.9% 1,000 ML ONE ×2 (15:55→18:00)
[2020-12-02 16:02] LABS: ALT/SGPT 42 U/L (12-78); AST/SGOT 33 U/L (15-37); Albumin 3.4 g/dL (3.4-5.0); Alkaline Phosphatase 78 U/L (45-117); BUN Blood Urea Nitrogen 10 mg/dL (7-18); Bicarbonate 25 mmol/L (21-32); Bilirubin Direct < 0.1 mg/dL (0-0.2); Bilirubin Total 0.2 mg/dL (0.2-1.0); Glucose Level 93 mg/dL (74-106); Lipase 69 U/L (73-393); Potassium 4.1 mmol/L (3.5-5.1); Protein, Total 7.8 g/dL (6.4-8.2); Sodium Level 141 mmol/L (136-145)
[2020-12-02 18:46] LABS: SARS-COV-2 RT PCR NEGATIVE (NEGATIVE)
[2020-12-02] MEDS ORDERED: DICYCLOMINE HCL 10 MG CAP ONE (18:56)
--- NOTE | 2020-12-02 19:21 | EDPHYS ---
Physician Documentation [facility] Name: Muriel Shultz Age: 35 yrs Sex: Female : 1985 Arrival Date: 12/02/2020 Time: 15:04 Bed 13 Private MD: ARMANI Physician Adolfo Mendosa HPI: 12/02 15:24 This 35 yrs old Female presents to ER via Ambulatory with complaints of pm1 Diarrhea, Dizziness. 15:24 The patient presents to the emergency department with diarrhea. pm1 15:24 Onset: The symptoms/episode began/occurred 2 day(s) ago. Possible causes: unknown. The pm1 symptoms are aggravated by nothing. The symptoms are alleviated by nothing. Associated signs and symptoms: Pertinent positives: Dizziness, Pertinent negatives: abdominal pain, fever, nausea, vomiting. Severity of symptoms: in the emergency department the symptoms have improved No abdominal pain present. The patient has not experienced similar symptoms in the past. The patient has not recently seen a physician. 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 - Social history:: Smoking status: Patient denies any tobacco usage or history of. ROS: 15:24 Constitutional: Negative for fever, chills, and weight loss, Cardiovascular: Negative pm1 for chest pain, palpitations, and edema, Respiratory: Negative for shortness of breath, cough, wheezing, and pleuritic chest pain. 15:24 Back: Negative for injury and pain, MS/Extremity: Negative for injury and deformity, Skin: Negative for injury, rash, and discoloration, Neuro: Negative for headache, weakness, numbness, tingling, and seizure. 15:24 Abdomen/GI: Positive for diarrhea, Negative for abdominal pain, nausea and vomiting. 15:24 All other systems are negative. Exam: 15:24 Constitutional: This is a well developed, well nourished patient who is awake, alert, pm1 and in no acute distress. Head/Face: Normocephalic, atraumatic. 15:24 Back: No spinal tenderness. No costovertebral tenderness. Full range of motion. Skin: Warm, dry with normal turgor. Normal color with no rashes, no lesions, and no evidence of cellulitis. MS/ Extremity: Pulses equal, no cyanosis. Neurovascular intact. Full, normal range of motion. 15:24 Eyes: Exam is negative for acute changes, Extraocular movements: no acute changes, Conjunctiva: no acute changes, no injection. 15:24 Cardiovascular: Exam negative for acute changes, Rate: normal, Rhythm: regular, Pulses: no pulse deficits are appreciated, Edema: is not appreciated. 15:24 Respiratory: Exam negative for acute changes, respiratory distress, shortness of breath, Breath sounds: are clear throughout. 15:24 Abdomen/GI: Inspection: obese Palpation: abdomen is soft and non-tender, in all quadrants. 15:24 Neuro: Exam negative for acute changes, Orientation: is normal, Mentation: is normal, Motor: is normal, moves all fours. Vital Signs: 15:27 BP 99 / 75 Supine; Pulse 93; ss 15:29 BP 113 / 84 Sitting; Pulse 105; ss 15:31 BP 112 / 79; Pulse 115; ss 15:32 BP 113 / 84; Pulse 100; Resp 18; Temp 97.8; Pulse Ox 99% ; Weight 104.33 kg; Height 5 ss ft. 7 in. (170.18 cm); Pain 7/10; 19:40 BP 121 / 81; Pulse 101; Resp 18; Temp 98.3; Pulse Ox 100% ; mr2 15:32 Body Mass Index 36.02 (104.33 kg, 170.18 cm) ss MDM: 15:19 Patient medically screened. pm1 17:33 Data reviewed: vital signs. Data interpreted: Pulse oximetry: on room air is 99 %. pm1 Interpretation: normal. 17:56 ED course: Abdominal pain resolved prior to today. Reports abdominal pain present this pm1 week with onset of diarrhea Thursday. Patient presenting to ER with diarrhea and dizziness associated with it. Patient without abdominal tenderness present normal white count and normal labs. Patient's serial abdominal exam is negative. No CT of abdomen required. Pending covid and flu swab results. 12/02 15:24 Order name: Basic Metabolic Panel; Complete Time: 16:13 pm1 12/02 15:24 Order name: CBC with Diff; Complete Time: 16:45 pm1 12/02 15:24 Order name: Hepatic Function; Complete Time: 16:13 pm1 12/02 15:24 Order name: Lipase; Complete Time: 16:13 pm1 12/02 15:42 Order name: Urine Dipstick-Ancillary; Complete Time: 16:13 EDMS 12/02 15:24 Order name: IV Saline Lock; Complete Time: 15:26 pm1 12/02 15:53 Order name: Urine --Ancillary (enter results); Complete Time: 17:53 eb 12/02 18:47 Order name: COVID-19/FLU A+B; Complete Time: 18:49 EDMS 12/02 15:24 Order name: Labs collected and sent; Complete Time: 16:29 pm1 12/02 15:24 Order name: Orthostatic Blood Pressure; Complete Time: 15:26 pm1 12/02 15:25 Order name: Urine Dipstick-Ancillary (obtain specimen); Complete Time: 15:38 pm1 12/02 15:25 Order name: Urine Test (obtain specimen); Complete Time: 15:38 pm1 Administered Medications: 15:35 Drug: NS 0.9% 1000 ml Route: IV; Rate: 1000 ml; Site: right antecubital; jw6 18:00 Drug: NS 0.9% 1000 ml Route: IV; Rate: 1000 ml; Site: left antecubital; jw6 19:13 Follow up: IV Status: Completed infusion; IV Intake: 1000ml jw6 19:13 Follow up: Response: No adverse reaction jw6 18:40 Drug: Bentyl (dicyclomine) 20 mg Route: PO; jw6 18:40 Follow up: Response: No adverse reaction jw6 Disposition: 12/03 10:41 Co-signature as Attending Physician, Adolfo Mendosa MD I agree with the assessment and see plan of care. Disposition Summary: 12/02/20 19:20 Discharge Ordered Location: Home jmm Problem: new jmm Symptoms: have improved jmm Condition: Stable jmm Diagnosis - Diarrhea, unspecified jmm - Dehydration jmm Followup: pm1 - With: Emergency Department - When: As needed - Reason: Worsening of condition Followup: pm1 - With: Private Physician - When: 2 - 3 days - Reason: Recheck today's complaints, Continuance of care, Re-evaluation by your physician Discharge Instructions: - Discharge Summary Sheet jmm - Food Choices to Help Relieve Diarrhea, Adult jmm - Nausea, Adult jmm Forms: - Medication Reconciliation Form jmm - Thank You Letter jmm - Antibiotic Education jmm - Prescription Opioid Use jm Prescriptions: - ondansetron 4 mg Oral tablet,disintegrating - take 1 tablet by ORAL route every 4-6 hours; 20 tablet; Refills: 0, Product jmm Selection Permitted - dicyclomine 20 mg Oral Tablet - take 1 tablet by ORAL route 4 times per day; 30 tablet; Refills: 0, Product jmm Selection Permitted Signatures: Dispatcher [employer] EDMS Adolfo Mendosa MD MD cha Mickail, Joel, PA PA jmm Smirch, Shelby, RN RN ss Geo Greer, ROBYN POWER PRESS TENDER pm1 Mariely Morton 6 Corrections: (The following items were deleted from the chart) 12/02 17:52 17:30 CORONAVIRUS+MR.LAB.BRZ ordered. EDMS EDMS 17:53 17:30 Influenza Screen (A \T\ B)+BA.LAB.BRZ ordered. EDMS EDMS
--- NOTE | 2020-12-02 19:21 | ER ---
Nurse's Notes [facility] Name: Muriel Shultz Age: 35 yrs Sex: Female : 1985 Arrival Date: 12/02/2020 Time: 15:04 Bed 13 Private MD: Diagnosis: Diarrhea, unspecified;Dehydration Presentation: 12/02 15:32 Chief complaint: Patient states: Nausea, diarrhea, and abdominal cramping since Thursday ss night. States she has had RUQ abd pain all week. No known fever. Coronavirus screen: Vaccine status: Patient reports receiving the 2nd dose of the covid vaccine. Client denies travel out of the [place] in the last 14 days. At this time, the client does not indicate any symptoms associated with coronavirus-19. Ebola Screen: Patient denies travel to an Ebola-affected area in the 21 days before illness onset. Initial Sepsis Screen: Does the patient meet any 2 criteria? No. Patient's initial sepsis screen is negative. Does the patient have a suspected source of infection? Yes: Acute abdominal pain. Risk Assessment: Do you want to hurt yourself or someone else? Patient reports no desire to harm self or others. Onset of symptoms was November 26, 2020. 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 - Social history:: Smoking status: Patient denies any tobacco usage or history of. Screenin:23 Abuse screen: Denies threats or abuse. Denies injuries from another. Nutritional jw6 screening: No deficits noted. Tuberculosis screening: No symptoms or risk factors identified. Fall Risk IV access (20 points). Assessment: 15:23 General: Appears comfortable, Behavior is calm, cooperative. Pain: Denies pain. Neuro: jw6 No deficits noted. Cardiovascular: No deficits noted. Respiratory: No deficits noted. GI: Bowel sounds present X 4 quads. Reports nausea, vomiting. : No deficits noted. EENT: No deficits noted. Derm: No deficits noted. Musculoskeletal: No deficits noted. Vital Signs: 15:27 BP 99 / 75 Supine; Pulse 93; ss 15:29 BP 113 / 84 Sitting; Pulse 105; ss 15:31 BP 112 / 79; Pulse 115; ss 15:32 BP 113 / 84; Pulse 100; Resp 18; Temp 97.8; Pulse Ox 99% ; Weight 104.33 kg; Height 5 ss ft. 7 in. (170.18 cm); Pain 7/10; 19:40 BP 121 / 81; Pulse 101; Resp 18; Temp 98.3; Pulse Ox 100% ; mr2 15:32 Body Mass Index 36.02 (104.33 kg, 170.18 cm) ED Course: 15:04 Patient arrived in ED. ds1 15:17 Mariely Morton is Primary Nurse. jw6 15:19 Geo Greer NP is PHCP. pm1 15:19 Adolfo Mendosa MD is Attending Physician. pm1 15:23 Patient has correct armband on for positive identification. Bed in low position. Call jw6 light in reach. Side rails up X 1. 15:23 No provider procedures requiring assistance completed. Initial lab(s) drawn, by nv, jw6 sent to lab. Inserted saline lock: 20 gauge in right antecubital area, using aseptic technique. 15:35 Triage completed. 18:27 PHCP role handed off by Geo Greer NP [facility] 18:27 Yossi Jesus PA is PHCP. [facility] 19:36 Patient none. dc2 19:36 IV discontinued, intact, bleeding controlled, No redness/swelling at site. Pressure dc2 dressing applied. Administered Medications: 15:35 Drug: NS 0.9% 1000 ml Route: IV; Rate: 1000 ml; Site: right antecubital; jw6 18:00 Drug: NS 0.9% 1000 ml Route: IV; Rate: 1000 ml; Site: left antecubital; jw6 19:13 Follow up: IV Status: Completed infusion; IV Intake: 1000ml jw6 19:13 Follow up: Response: No adverse reaction jw6 18:40 Drug: Bentyl (dicyclomine) 20 mg Route: PO; jw6 18:40 Follow up: Response: No adverse reaction jw6 Intake: 19:13 IV: 1000ml; Total: 1000ml. jw6 Outcome: 19:20 Discharge ordered by MD. kitchen 19:35 Discharged to home ambulatory. dc2 19:35 Condition: stable 19:35 Discharge instructions given to patient, family, Instructed on discharge instructions, follow up and referral plans. Demonstrated understanding of instructions, follow-up care, Prescriptions given X 2. 19:36 Patient left the ED. dc2 Signatures: Yossi Jesus PA PA jmm Sanford, Demi ds1 Ivania Arciniega RN RN Geo العراقي NP NEGATIVE ASSEMBLER pm1 Jacob Francis RN RN mr2 Sussy Graves RN RN dc2 Mariely Morton jw6
[2020-12-02 19:45] VITALS: BP 113/84; TEMP 97.8; O2SAT 99
== END 2020-12-02 19:36 | disposition home or self-care (01) ==
LOC: ER 15:00
DX: R19.7 Diarrhea, unspecified (principal); E86.0 Dehydration; E03.9 Hypothyroidism, unspecified; F32.A Depression, unspecified; Z20.822 Contact with and (suspected) exposure to COVID-19
CPT/HCPCS: 0240U; 36415; 80048; 80076; 81003; 81025; 83690; 85025; 96360; 99284; J7030

== ENCOUNTER 2021-02-01 10:33 | Emergency (ER) | payer SELFPAY ==
--- OUTSIDE RECORDS SUMMARY | 2021-02-01 10:37 | XMS REPORT | Continuity of Care Document ---
:1985 Author Organization [facility] t Address [address] [place] [address] [address] [place] [address] Care Team Providers Name Role Phone Jerel PATEL JR Primary Care Physician Unavailable Mitul MOORE Attending Clinician Unavailable Pawel LEWIS Attending Clinician Unavailable Jack MONAHAN, Pawel Attending Clinician Papito DE SOUZA Attending Clinician Unavailable Lab, Fam Pob I Attending Clinician Unavailable KADEN Attending Clinician Unavailable Mitul Moore MD Attending Clinician Ingris SOLARES Attending Clinician Unavailable Kun TREVIZO Attending Clinician Unavailable Mitul MOORE Admitting Clinician Unavailable Payers Payer Name Policy Type Policy Number Effective Date Expiration Date S shea [facility] [id number] 2018 00:00:00 Problems Condition Condition Condition Status Onset Resolution Last Treating Co mments Source Name Details Category Date Date Treatment Clinician Date History of History of Disease Active 2020-02 U nivers recurrent recurrent 0-12 ity of vaginal vaginal 00:00: [place] discharge discharge 00 [facility] Tubal Tubal Disease Active 2015-02 Univers ligation ligation 1-15 ity of status status 00:00: [place] 00 Medical Branch Hypothyroi Hypothyroi Disease Active U nivers dism dism 8-12 ity of 00:00: [place] 00 [facility] Depressive Depressive Disease Active U nivers disorder disorder 8-19 ity of 00:00: [place] 00 Medical Branch Allergies, Adverse Reactions, Alerts Allergy Allergy Status Severity Reaction(s) Onset Inactive Treating Comm ents Source Name Type Date Date Clinician Valacycl Propensi Active Rash Univer s ovir Hcl ty to 6-02 ity of adverse 00:00: [place] reaction 00 Medical s Branch VALACYCL DRUG Active Rash Univers OVIR HCL INGREDI 07-11 ity of 00:00: [place] 00 Medical Branch NO KNOWN Drug Active Univers ALLERGIE Class ity of S [place] [facility] [place] Social History Social Habit Start Date Stop Date Quantity Comments Source Exposure to Not sure [facility] SARS-CoV-2 (event) Medica l Branch History [facility] University o f [place] Alcohol Frequency Medical Branch History [facility] o [facility] [place] Alcohol Std Drinks Medica l Branch History [facility] University o f [place] Alcohol Binge [facility] Alcohol intake 2020-11-20 2020-11-20 0 /d [facility] 00:00:00 00:00:00 Medical Branch Alcohol Comment 2019-09-21 2019-09-21 socially [facility] 00:00:00 00:00:00 Medical Branch Tobacco use and 2012-07-29 2012-07-29 Never used [facility] exposure 00:00:00 00:00:00 Medical Branch Sex [birth year] [facility] 00:00:00 00:00:00 Medical Branch Smoking Status Start Date Stop Date Source Never smoker [facility] Medications Ordered Filled Start Stop Current Ordering Indication Dosage Frequency Signature Comments Components Source Medication Medication Date Date Medication? Clinician (SIG) Name Name buPROPion 2020-02 Yes 150mg Take 150 Uni vers XL 0-12 mg by ity of (WELLBUTRIN 10:41: mouth [place] XL) 150 mg 28 daily. Medical 24 hr Branch tablet traZODone 2020-02 Yes 50mg Take 50 mg Un chrissy 50 mg 0-12 by mouth ity of tablet 10:28: at [place] 21 bedtime. Medical Branch fluconazole 2020- No [id number] 150mg Take 1 Univers 150 mg 5-13 10-12 tablet by ity of tablet 00:00: 00:00 mouth [place] 00 :00 every 72 Medical (seventy-t Branch wo) hours. phentermine 2020- No 37.5mg Take 37.5 Univers 37.5 mg 4-15 10-12 mg by ity of tablet 00:00: 00:00 mouth [place] 00 :00 daily. Medical Branch ibuprofen 2020- No [id number] 800mg Take 1 Univers 800 mg 10-12 tablet by ity of tablet 00:00: 00:00 mouth [place] 00 :00 every 6 Medical (six) Branch hours as needed for Pain (scale 4-6) or Alternate with [place] for pain scale 4-6. ferrous 2020- No Univers gluconate 08-16 ity of 324 mg (38 00:00: 00:00 [place] mg iron) 00 :00 Medical tablet Branch pantoprazol 2020- No Unive rs e 40 mg EC 07-09 ity of tablet 00:00: 00:00 [place] 00 :00 Medical Branch levothyroxi Yes Univer s ne 50 mcg 24 ity of tablet 00:00: [place] 00 [facility] Immunizations Ordered Filled Immunization Date Status Comments Sourc e Immunization Name Name Influenza Virus 2019-09-21 [facility]00 [facility] TDAP 2015-09-21 Completed University of 00:00:00 [facility] PPD (TB) 2014-01-17 Completed University of 00:00:00 [facility] TDAP 2012-07-29 Completed University of 00:00:00 [facility] PPD (TB) 2010-07-17 Completed University of 00:00:00 [facility] Td 2001-02-09 Completed University of 00:00:00 [facility] Vital Signs Vital Name Observation Time Observation Value Comments Source Systolic blood 2020-11-20 15:25:00 124 mm[Hg] Univer sity of pressure [facility] Diastolic blood 2020-11-20 15:25:00 75 mm[Hg] Unive rsity of [facility] Heart rate 2020-11-20 15:25:00 104 /min [facility] Respiratory rate 2020-11-20 15:25:00 18 /min Univ ersity [facility] [place] Body height 2020-11-20 15:25:00 170.2 cm [facility] Body weight 2020-11-20 15:25:00 105.144 kg [facility] BMI 2020-11-20 15:25:00 36.31 kg/m2 [facility] Procedures This patient has no known procedures. Encounters Start End Encounter Admission Attending Care Care Encounter Source Date/Time Date/Time Type Type Clinicians Facility Department ID 2020-12-07 Outpatient ELSIE [facility] [id number] Univers 14:35:50 JESSICA marshall [facility] [place] 2021-03-22 2021-03-22 Outpatient Linnea LEWIS [facility] [id number] Univers 09:45:00 09:45:00 MAYDA [id number] jessicaverito [facility] [place] 2021-03-22 2021-03-22 Outpatient Linnea LEWIS [facility] [id number] Univers 09:45:00 09:45:00 MAYDA marshall [facility] [place] 2020-11-20 2020-11-20 Office Jack [facility] [id number] Univers 10:15:34 11:24:03 Visit Mayda Pawel OPERATIONS/DISPATCH [id number] [facility] [id number] [place] as MATERNAL [phone] Med ical & CHILD [address] [place] [address] 2020-11-20 2020-11-20 Outpatient Linnea LEWIS [facility] [id number] Univers 10:15:00 10:15:00 MAYDA [id number] [facility] 2020-11-20 2020-11-20 Outpatient Linnea LEWIS [facility] [id number] Univers 10:15:00 10:15:00 MAYDA [facility] 2020-11-13 2020-11-13 Outpatient ELSIE [facility] [id number] Univers 13:00:00 13:00:00 [facility] [id number] 2020-10-[facility] 2020-10-31 Outpatient R ELSIE [facility] [id number] Univers 09:00:00 09:00:00 JESSICA [id number] [facility] 2020-10-31 2020-10-31 Outpatient R ELSIE, [facility] [id number] Univers 09:00:00 09:00:00 JESSICA [facility] 2020-10-15 2020-10-15 Outpatient R [facility] [id number] Univers 17:45:00 17:45:00 [id number] [facility] 2020-10-15 2020-10-15 Outpatient R AP, [facility] [id number] Univers 17:45:00 17:45:00 ELVIN [facility] 2020-06-22 2020-06-22 Laboratory Lab, [facility] [id number] 12:54:53 13:14:53 Only Fam Pob I Health [id number] [place] [id number] Professio [phone] nal [address] 2020-06-22 2020-06-22 Outpatient [facility] [id number] Univers 13:00:00 13:00:00 [id number] [facility] 2020-06-22 2020-06-22 Outpatient R KADEN, [facility] [id number] Univers 13:00:00 13:00:00 GREGORY [facility] 2020-06-21 2020-06-21 Case Adum, [facility] [id number] 00:00:00 00:00:00 Management Jessica Wagoner [id number] [place] [id number] Professio [id number] [address] 2020-06-19 2020-06-19 Office Ad, [facility] [id number] 09:53:45 10:37:11 Visit Jessica Wagoner [id number] [place] [id number] Professio [id number] [address] 2020-06-19 2020-06-19 Outpatient R ADUM, [facility] [id number] Univers 10:00:00 10:00:00 JESSICA [id number] [facility] 2020-06-19 2020-06-19 Outpatient R ADUM, [facility] [id number] Univers 10:00:00 10:00:00 JESSICA [facility] 2020-05-31 2020-05-31 Outpatient ADUM, [facility] [id number] Univers 11:00:00 11:00:00 JESSICA [id number] [facility] 2020-05-31 2020-05-31 Outpatient R ADUM, [facility] [id number] Univers 11:00:00 11:00:00 JESSICA ity [facility] [place] 2019-12-22 2019-12-22 Outpatient R [facility] [id number] Univers 14:00:00 14:00:00 [id number] ity [facility] [place] 2019-12-22 2019-12-22 Outpatient R BECK, [facility] [id number] Univers 14:00:00 14:00:00 JENNIFER ity [facility] [place] 2019-10-28 2019-10-28 Outpatient R ADUM, [facility] [id number] Univers 09:00:00 09:00:00 JESSICA [id number] ity [facility] [place] 2019-10-28 2019-10-28 Outpatient R ADUM, [facility] [id number] Univers 09:00:00 09:00:00 JESSICA ity [facility] [place] 2019-10-12 2019-10-12 Outpatient R [facility] [id number] Univers 08:00:00 08:00:00 ity [facility] [place] 2019-10-12 2019-10-12 Outpatient R [facility] [id number] Univers 08:00:00 08:00:00 ity [facility] [place] 2019-10-03 2019-10-03 Outpatient R ADUM, [facility] [id number] Univers 16:00:00 16:00:00 JESSICA [id number] ity [facility] [place] 2019-10-03 2019-10-03 Outpatient R ADUM, [facility] [id number] Univers 16:00:00 16:00:00 JESSICA ity [facility] [place] 2019-09-28 2019-09-28 Outpatient R ADUM, [facility] [id number] Univers 16:00:00 16:00:00 JESSICA [id number] ity [facility] [place] 2019-09-28 2019-09-28 Outpatient R ADUM, [facility] [id number] Univers 16:00:00 16:00:00 JESSICA ity [facility] [place] 2019-09-21 2019-09-21 Outpatient ADUM, [facility] [id number] Univers 09:30:00 09:30:00 JESSICA [id number] ity of [facility] 2019-09-21 2019-09-21 Outpatient R ADUM, [facility] [id number] Univers 09:30:00 09:30:00 JESSICA ity of [facility] 2019-09-16 2019-09-16 Outpatient R ADUM, [facility] [id number] Univers 09:00:00 09:00:00 JESSICA ity of [facility] 2019-09-16 2019-09-16 Outpatient R ADUM, [facility] [id number] Univers 09:00:00 09:00:00 JESSICA ity of [facility] 2019-09-06 2019-09-06 Outpatient OZZYJULIO, [facility] [id number] Univers 13:30:00 13:30:00 MAREK [id number] ity of [facility] 2019-09-06 2019-09-06 Outpatient R MARCELLMILAGROSERG, [facility] [id number] Univers 13:30:00 13:30:00 MAREK lopezy [facility] [place] 2019-09-02 2019-09-02 Outpatient R ADUM, [facility] [id number] Univers 09:15:00 09:15:00 JESSICA [id number] ity of [facility] 2019-08-30 2019-08-30 Outpatient R ADUM, [facility] [id number] Univers 00:00:00 00:00:00 JESSICA [id number] ity of [facility] 2019-08-30 2019-08-30 Outpatient R ADUM, [facility] [id number] Univers 00:00:00 00:00:00 JESSICA ity [facility] [place] 2019-08-19 2019-08-19 Outpatient R ADUM, [facility] [id number] Univers 15:30:00 15:30:00 JESSICA ity of [facility] 2019-08-19 2019-08-19 Outpatient R ADUM, [facility] [id number] Univers 15:30:00 15:30:00 JESSICA ity [facility] [place] 2019-08-02 2019-08-02 Outpatient R OZZYERG, [facility] [id number] Univers 13:30:00 13:30:00 [id number] [facility] 2019-08-02 [facility] [id number] Univers 13:30:00 13:30:00 MAREK [facility] 2019-07-29 2019-07-29 Outpatient ELSIE [facility] [id number] Univers 10:00:00 10:00:00 [facility] [id number] [facility] 2019-07[facility] 2019-07-19 [facility] [id number] Univers 14:45:00 14:45:00 MAREK [id number] [facility] 2019-07-19 2019-07-19 [facility] [id number] Univers 09:26:02 10:09:00 [facility]12 2019-07-12 [facility] [id number] Univers 15:00:00 15:00:00 [facility] 2019-[facility]12 2019-07-12 [facility] [id number] Univers 15:00:00 15:00:00 JESSICA [facility] Results This patient has no known results.
--- NOTE | 2021-02-01 11:40 | EDPHYS ---
Physician Documentation [facility] Name: Muriel Shultz Age: 35 yrs Sex: Female : 1985 Arrival Date: 02/01/2021 Time: 10:39 Bed 6 Private MD: ED Physician Maureen Araiza HPI: 02/01 11:38 This 35 yrs old Female presents to ER via Ambulatory with complaints of Sinus ma2 Congestion, Ear Pain. 11:38 The patient or guardian reports cough. Severity of symptoms: At their worst the ma2 symptoms were moderate, in the emergency department the symptoms are unchanged. Associated signs and symptoms: The patient has no apparent associated signs or symptoms, Pertinent positives: earache, Pertinent negatives: nausea, rhinorrhea, sore throat, vomiting. The patient has not experienced similar symptoms in the past. Historical: - Allergies: 10:51 Valtrex; ss - PMHx: 10:51 Depression; gallstone; Hypothyroidism; ss - Immunization history:: Client reports receiving the 2nd dose of the Covid vaccine. - Social history:: Smoking status: Patient denies any tobacco usage or history of. Patient/guardian denies using alcohol, street drugs, The patient lives with family. - Family history:: not pertinent. ROS: 11:38 Constitutional: Negative for fever, chills, and weight loss. ma2 11:38 All other systems are negative. Exam: 11:38 Constitutional: This is a well developed, well nourished patient who is awake, alert, ma2 and in no acute distress. Head/Face: Normocephalic, atraumatic. Eyes: Pupils equal round and reactive to light, extra-ocular motions intact. Lids and lashes normal. Conjunctiva and sclera are non-icteric and not injected. Cornea within normal limits. Periorbital areas with no swelling, redness, or edema. ENT: Right tympanic membrane is red, no mastoid process tenderness or redness, on either side. Otherwise otherwise nares patent. No nasal discharge, no septal abnormalities noted. Left tympanic membrane is normal and external auditory canals are clear. Oropharynx with no redness, swelling, or masses, exudates, or evidence of obstruction, uvula midline. Mucous membranes moist. Neck: Trachea midline, no thyromegaly or masses palpated, and no cervical lymphadenopathy. Supple, full range of motion without nuchal rigidity, or vertebral point tenderness. No Meningismus. Chest/axilla: Normal chest wall appearance and motion. Nontender with no deformity. No lesions are appreciated. Cardiovascular: Regular rate and rhythm with a normal S1 and S2. No gallops, murmurs, or rubs. Normal PMI, no JVD. No pulse deficits. Respiratory: Lungs have equal breath sounds bilaterally, clear to auscultation and percussion. No rales, rhonchi or wheezes noted. No increased work of breathing, no retractions or nasal flaring. Abdomen/GI: Soft, non-tender, with normal bowel sounds. No distension or tympany. No guarding or rebound. No evidence of tenderness throughout. Back: No spinal tenderness. No costovertebral tenderness. Full range of motion. Skin: Warm, dry with normal turgor. Normal color with no rashes, no lesions, and no evidence of cellulitis. MS/ Extremity: Pulses equal, no cyanosis. Neurovascular intact. Full, normal range of motion. Neuro: Awake and alert, GCS 15, oriented to person, place, time, and situation. Cranial nerves II-XII grossly intact. Motor strength 5/5 in all extremities. Sensory grossly intact. Cerebellar exam normal. Normal gait. Vital Signs: 10:49 Pulse 118; Resp 17; Temp 98.0(TE); Pulse Ox 98% on R/A; Weight 104.33 kg; Height 5 ft. ss 7 in. (170.18 cm); Pain 7/10; 10:52 BP 104 / 78; ss 11:15 BP 114 / 74; Pulse 116; Resp 18 S; Pulse Ox 98% on R/A; Pain 7/10; al4 12:15 BP 124 / 75; Pulse 77; Resp 18 S; Pulse Ox 99% on R/A; al4 10:49 Body Mass Index 36.02 (104.33 kg, 170.18 cm) ss MDM: 10:59 Patient medically screened. ma2 11:38 Differential Diagnosis: Upper Respiratory Infection Sinusitis Pharyngitis Otitis Media. ma2 Data reviewed: vital signs, nurses notes. Counseling: I had a detailed discussion with the patient and/or guardian regarding: the historical points, exam findings, and any diagnostic results supporting the discharge/admit diagnosis, the presence of at least one elevated blood pressure reading (>120/80) during this emergency department visit, the need for outpatient follow up. Response to treatment: the patient's symptoms have markedly improved after treatment. 02/01 11:37 Order name: SARS-COV-2 RT PCR (Document "Date of Onset" if Symptomatic) ma2 Administered Medications: 12:03 Drug: Rocephin (cefTRIAXone) 250 mg Route: IM; Site: left gluteus; al4 12:36 Follow up: Response: No adverse reaction al4 12:03 Drug: AZITHromycin 500 mg Route: PO; al4 12:36 Follow up: Response: No adverse reaction al4 12:04 Drug: Ketorolac 60 mg Route: IM; Site: right gluteus; al4 12:36 Follow up: Response: No adverse reaction al4 Disposition Summary: 02/01/21 11:40 Discharge Ordered Location: Home ma2 Condition: Stable ma2 Diagnosis - Acute serous otitis media, recurrent, right ear ma2 - Acute bronchitis due to rhinovirus ma2 Followup: ma2 - With: Private Physician - When: Tomorrow - Reason: Recheck today's complaints, Continuance of care Discharge Instructions: - Discharge Summary Sheet ma2 - Acute Bronchitis, Adult ma2 - Otitis Media, Adult, [id number] ma2 Forms: - Medication Reconciliation Form ma2 - Thank You Letter ma2 - Antibiotic Education ma2 - Prescription Opioid Use ma2 Prescriptions: - Diclofenac Sodium 75 mg Oral Tablet Sustained Release - take 1 tablet by ORAL route 2 times per day; 30 tablet; Refills: 0, Product ma2 Selection Permitted - Zithromax Z-Wolf 250 mg Oral Tablet - take 1 tablet by ORAL route as directed for 5 days Day 1 - take two (2) tablets ma2 one time. Day 2, 3, 4 , 5 take one (1) tablet once daily.; 6 tablet; Refills: 0, Product Selection Permitted - Medrol (Wolf) 4 mg Oral Tablets, Dose Pack - take 1 tablet by ORAL route as directed - follow package instructions; 1 ma2 packet; Refills: 0, Product Selection Permitted Signatures: Dispatcher [employer] Ivania Wagner RN RN ss Alzahri, Mohammad, MD MD ks2 Sánchez De Leon
--- NOTE | 2021-02-01 11:40 | ER ---
Nurse's Notes [facility] Name: Muriel Shultz Age: 35 yrs Sex: Female : 1985 Arrival Date: 02/01/2021 Time: 10:39 Bed 6 Private MD: Diagnosis: Acute serous otitis media, recurrent, right ear;Acute bronchitis due to rhinovirus Presentation: 02/01 10:49 Chief complaint: Patient states: R ear pain and nasal congestion/ pressure that began 1 ss week ago. Pt reports she was diagnosed with an ear infection and was beginning to feel better, but is now feeling worse again and today is her last day taking Cipro. Coronavirus screen: Client denies travel out of the [place] in the last 14 days. Ebola Screen: Patient denies exposure to infectious person. Patient denies travel to an Ebola-affected area in the 21 days before illness onset. Initial Sepsis Screen: Does the patient meet any 2 criteria? No. Patient's initial sepsis screen is negative. Does the patient have a suspected source of infection? No. Patient's initial sepsis screen is negative. Risk Assessment: Do you want to hurt yourself or someone else? Patient reports no desire to harm self or others. Onset of symptoms was January 2021. 10:49 Method Of Arrival: Ambulatory ss 10:49 Acuity: HERNANDEZ 4 ss Historical: - Allergies: 10:51 Valtrex; ss - PMHx: 10:51 Depression; gallstone; Hypothyroidism; ss - Immunization history:: Client reports receiving the 2nd dose of the Covid vaccine. - Social history:: Smoking status: Patient denies any tobacco usage or history of. Patient/guardian denies using alcohol, street drugs, The patient lives with family. - Family history:: not pertinent. Screenin:26 Abuse screen: Denies threats or abuse. Nutritional screening: No deficits noted. al4 Tuberculosis screening: No symptoms or risk factors identified. Fall Risk No fall in past 12 months (0 pts). No IV (0 pts). Ambulatory Aid- None/Bed Rest/Nurse Assist (0 pts). Gait- Normal/Bed Rest/Wheelchair (0 pts) Mental Status- Oriented to own ability (0 pts). Total Soler Fall Scale indicates No Risk (0-24 pts). Assessment: 11:15 General: Appears in no apparent distress. comfortable, Behavior is calm, cooperative, al4 Patient states "I went to the clinic on last and they prescribed me cipro which I started taking on Thursday. I started to feel better until Thursday when my symptoms got worse." Patient stated she has right ear pain, chest pain "from coughing" and nasal congestion. . Pain: Complains of pain in right ear Pain currently is 7 out of 10 on a pain scale. Neuro: Level of Consciousness is awake, alert, obeys commands, Oriented to person, place, time, situation. Cardiovascular: Heart tones present Capillary refill < 3 seconds Patient's skin is warm and dry. Respiratory: Reports cough that is productive, producing "green mucous" Airway is patent Respiratory effort is even, unlabored, Respiratory pattern is regular, symmetrical, Breath sounds are clear bilaterally. GI: No signs and/or symptoms were reported involving the gastrointestinal system. : No signs and/or symptoms were reported regarding the genitourinary system. EENT: Reports nasal congestion pain in right ear in chest "from coughing" Pain is 7 out of 10 on a pain scale. Derm: No signs and/or symptoms reported regarding the dermatologic system. Musculoskeletal: No signs and/or symptoms reported regarding the musculoskeletal system. 12:15 Reassessment: No changes from previously documented assessment. Patient and/or family al4 updated on plan of care and expected duration. Pain level reassessed. Patient is alert, oriented x 3, equal unlabored respirations, skin warm/dry/pink. Vital Signs: 10:49 Pulse 118; Resp 17; Temp 98.0(TE); Pulse Ox 98% on R/A; Weight 104.33 kg; Height 5 ft. ss 7 in. (170.18 cm); Pain 7/10; 10:52 BP 104 / 78; ss 11:15 BP 114 / 74; Pulse 116; Resp 18 S; Pulse Ox 98% on R/A; Pain 7/10; al4 12:15 BP 124 / 75; Pulse 77; Resp 18 S; Pulse Ox 99% on R/A; al4 10:49 Body Mass Index 36.02 (104.33 kg, 170.18 cm) ED Course: 10:39 Patient arrived in ED. mr 10:51 Triage completed. ss 10:51 Arm band placed on right wrist. ss 10:59 Maureen Araiza MD is Attending Physician. ma2 11:26 Patient has correct armband on for positive identification. Bed in low position. Call al4 light in reach. Side rails up X 1. Pulse ox on. NIBP on. Door closed. Noise minimized. Head of bed elevated. 11:39 Sánchez De Leon is Primary Nurse. al4 12:33 No provider procedures requiring assistance completed. Patient did not have IV access al4 during this emergency room visit. Administered Medications: 12:03 Drug: Rocephin (cefTRIAXone) 250 mg Route: IM; Site: left gluteus; al4 12:36 Follow up: Response: No adverse reaction al4 12:03 Drug: AZITHromycin 500 mg Route: PO; al4 12:36 Follow up: Response: No adverse reaction al4 12:04 Drug: Ketorolac 60 mg Route: IM; Site: right gluteus; al4 12:36 Follow up: Response: No adverse reaction al4 Outcome: 11:40 Discharge ordered by MD. ma2 12:33 Discharged to home ambulatory. al4 12:33 Condition: stable 12:33 Discharge instructions given to patient, friend, Instructed on discharge instructions, follow up and referral plans. Demonstrated understanding of instructions, follow-up care, medications. 12:39 Patient left the ED. al4 Signatures: Zamarripa Marci Ivania Hewitt RN RN Maureen Araiza MD MD mdSánchez Gonzalez al4 Corrections: (The following items were deleted from the chart) 12:18 11:15 Respiratory: Reports cough that is productive, producing "green mucous" Airway is al4 patent Respiratory effort is even, unlabored, Respiratory pattern is regular, symmetrical, Breath sounds with crackles in right posterior upper lobe and right posterior middle lobe al4 12:38 12:00 Reassessment: No changes from previously documented assessment. Patient and/or al4 family updated on plan of care and expected duration. Pain level reassessed. Patient is alert, oriented x 3, equal unlabored respirations, skin warm/dry/pink. al4
[2021-02-01] MEDS ORDERED: CEFTRIAXONE 250 MG/VIAL ONE (11:44)
[2021-02-01] MEDS ORDERED: AZITHROMYCIN 250 MG TAB ONE (11:44)
[2021-02-01] MEDS ORDERED: KETOROLAC 30 MG/ML INJ ONE (11:44)
[2021-02-01 12:48] VITALS: TEMP 98
[2021-02-01 12:52] VITALS: BP 124/75; O2SAT 99
== END 2021-02-01 12:39 | disposition home or self-care (01) ==
LOC: ER 10:33
DX: H65.04 Acute serous otitis media, recurrent, right ear (principal); J20.6 Acute bronchitis due to rhinovirus; Z20.822 Contact with and (suspected) exposure to COVID-19; Z88.8 Allergy status to other drugs, medicaments and biological substances
CPT/HCPCS: 96372; 99283; J0696; U0003